=== PATIENT | female | born 2000 | race Caucasian/White ===

== ENCOUNTER 2021-03-11 07:43 | Observation (INO) | END 2021-03-11 09:15 | disposition home or self-care (01) | LOC: 1NENULAB | PROVIDERS: ADMIT Advanced Practice Midwife; ATTEND Advanced Practice Midwife ==

== ENCOUNTER → 2021-06-09 05:32 | Observation (INO) ==
[2021-06-09 05:07] LABS: Bilirubin,Urine Negative (Negative); Blood,Urine Negative (Negative); Clarity,Urine Clear (Clear); Color,Urine Light-Yellow (Yellow); Glucose,Urine (UA) Normal (Normal); Ketones,Urine Negative (Negative); Leukocyte Esterase,Urine Negative (Negative); Nitrite,Urine Negative (Negative); PH,Urine 6.5 pH Units (5.0-8.0); Protein,Urine Negative (Neg-Trace); Specific Gravity,Urine 1.015 (1.010-1.025); Urobilinogen,Urine Normal (Normal)
== END | disposition home or self-care (01) ==
LOC: 1NENULAB
PROVIDERS: ADMIT Advanced Practice Midwife; ATTEND Advanced Practice Midwife

== ENCOUNTER → 2021-06-28 01:29 | Observation (INO) | END | disposition home or self-care (01) | LOC: 1NENULAB | PROVIDERS: ADMIT Registered Nurse; ATTEND Registered Nurse ==

== ENCOUNTER 2021-07-06 09:46 | Inpatient (IN) ==
[2021-07-06] MEDS ORDERED: Lidocaine 1% 20 ML MDV INFILT PRN (10:00)
[2021-07-06] MEDS ORDERED: Famotidine 20 MG/2 ML VIAL IVP PRN (10:00)
[2021-07-06] MEDS ORDERED: Metoclopramide 10 MG/2 ML VIAL IVP PRN (10:00)
[2021-07-06] MEDS ORDERED: Ondansetron 4 MG/2 ML VIAL IVP PRN (10:00)
[2021-07-06] MEDS ORDERED: Naloxone 0.4 MG/ML INJ IVP PRN (10:00)
[2021-07-06] MEDS ORDERED: *HR* Nalbuphine 10 MG/ML AMPUL IV PRN (10:00)
[2021-07-06] MEDS ORDERED: Azithromycin 500 MG in 0.9 % Sodium Chloride 250 ML IVPB PRN (10:00)
[2021-07-06] MEDS ORDERED: miSOPROStoL 25 MCG TABLET PO ONE (10:05)
[2021-07-06] MEDS ORDERED: Oxytocin 20 units/ LR 1000 mL 20 UNIT/1,000 ML BAG IVC SCH (10:15)
[2021-07-06 11:31] LABS: Basophils % 0.4 %; Eosinophils # 0.1 K/mcL (0.0-0.6); Lymphocytes # 1.6 K/mcL (0.6-4.6); Lymphocytes % 17.9 %; Mean Corpuscular HGB Conc 34.1 g/dL (31.6-35.5); Mean Corpuscular Hemoglobin 29.9 pg (28.0-33.3); Mean Corpuscular Volume 87.4 fL (83.0-100.0); Mean Platelet Volume 10.9 fL (9.4-12.4); Monocytes # 0.4 K/mcL (0.0-1.3); Monocytes % 4.4 %; Neutrophils # 6.8 K/mcL (1.6-8.9); Platelet Count 243 K/mcL (140-400); Red Blood Count 4.69 M/mcL (3.82-4.97); Segmented Neutrophils % 75.3 %
[2021-07-06 11:41] LABS: Amphetamine Screen,Urine Negative ng/mL (Cutoff=1000); Barbiturate Screen,Urine Negative ng/mL (Cutoff=200); Benzodiazepines Screen,Urine Negative ng/mL (Cutoff=200); Cannabinoid Screen,Urine Negative ng/mL (Cutoff = 50); Cocaine Screen,Urine Negative ng/mL (Cutoff= 300); Opiate Screen,Urine Negative ng/mL (Cutoff=300); Phencyclidine Screen,Urine Negative ng/mL (Cutoff=25)
[2021-07-06] MEDS ORDERED: *HR* FentaNYL (PF) 100 MCG/2 ML VIAL EP ONE (13:25)
[2021-07-06] MEDS ORDERED: Ropivacaine/PF 0.2% 20 ML VIAL EP ONE (13:25)
[2021-07-06] MEDS ORDERED: EPHEDrine 50 MG/ML VIAL IVP PRN (13:25)
[2021-07-06] MEDS: Ringers Solution, Lactated 1,000 ML IVC SCH ×2 (13:27→17:19)
[2021-07-06] MEDS ORDERED: Epidural Premix (fent/bupiv) 110 ML EP SCH (13:30)
[2021-07-06] MEDS ORDERED: Ropivacaine/PF 0.2% 20 ML VIAL ONE (18:28)
[2021-07-06] MEDS ORDERED: *HR* FentaNYL (PF) 100 MCG/2 ML VIAL ONE (18:28)
[2021-07-07] MEDS ORDERED: Benzocaine/Menthol 56 GM AEROSOL SPRAY TP PRN (01:34)
[2021-07-07] MEDS ORDERED: Lanolin 7 G OINT...G. TP PRN (01:34)
[2021-07-07] MEDS ORDERED: Oxytocin 20 units/ LR 1000 mL 20 UNIT/1,000 ML BAG IVC SCH (01:34)
[2021-07-07] MEDS: Acetaminophen 325 MG TABLET PO PRN ×2 (05:51→15:33)
[2021-07-07] MEDS: Prenatal Vit/FA 1 EACH TABLET PO SCH (08:21)
[2021-07-08] MEDS: Acetaminophen 325 MG TABLET PO PRN ×2 (02:56→10:23)
[2021-07-08 08:10] VITALS: BP 109/63; TEMP 98; O2SAT 98
[2021-07-08] MEDS: Prenatal Vit/FA 1 EACH TABLET PO SCH (10:20)
[2021-07-08 11:10] VITALS: PULSE 76
== END 2021-07-08 13:23 | disposition home or self-care (01) ==
LOC: 1NENULAB 09:46 → 1NENUOBS 07-07 01:34
PROVIDERS: ADMIT Registered Nurse; ATTEND Registered Nurse